=== PATIENT | female | born 1995 | race Caucasian/White ===

== ENCOUNTER 2017-04-15 14:28 | Emergency (ER) | payer MEDICAID ==
[~2017-04-15 14:28] MED LIST: ABILIFY10 MG PO; ABILIFY5 MG PO; ANTI-DEPRESSANT; ANTIBIOTIC; ANTIVERT25 M1 PO; ATENOLOL25 MG PO; BIRTH CONTROL PO; CLEOCIN HCL300 MG PO; CONCERTA36 MG PO; GLUCOPHAGE XR500 MG PO; GLUCOPHAGE500 MG PO; INDERAL10 MG PO; KEFLEX500 M4 PO; LAMICTAL200 M2 PO; LEXAPRO20 M2 PO; LEXAPRO20 MG PO; MACRODANTIN100 MG PO; PROVENTIL17 GM IH; TRAZODONE50 MG PO; ZITHROMAX250 M1 PO; ZOFRAN ODT4 MG/UDTAB PO
== END 2017-04-15 17:01 | disposition left against medical advice (07) ==
LOC: EDMED 14:28
DX: Z53.21 Procedure and treatment not carried out due to patient leaving prior to being seen by health care provider (principal)

== ENCOUNTER 2017-04-24 13:49 | Emergency (ER) | payer MEDICAID ==
[2017-04-24] MEDS ORDERED: CLINDAMYCIN HC300 M2 PO (14:41)
== END 2017-04-24 14:55 ==
LOC: EDMED 13:49
DX: L03.116 Cellulitis of left lower limb (principal); I10 Essential (primary) hypertension